=== PATIENT | female | born 1965 | race Caucasian/White ===

== ENCOUNTER → 2017-12-04 | Outpatient (CLI) | payer BC ==
[~2017-12-04] MED LIST: ISOVUE-370 76% 100ML VIAL (Q9967) As Ordered
== END ==
LOC: M RAD 08:48
DX: J38.1 Polyp of vocal cord and larynx (principal)

== ENCOUNTER 2017-12-12 07:10 | Day surgery (SDC) | payer BC ==
[2017-12-12] MEDS: LR 1,000 ML IV (07:41)
[2017-12-12] MEDS ORDERED: SUCCINYLCHOLINE 100 MG/5 ML SYRINGE (J0330) As Ordered (08:05)
[2017-12-12] MEDS ORDERED: LIDOCAINE 2% INJ 100 MG/5 ML SDV (FOR ANES.) As Ordered (08:05)
[2017-12-12] MEDS ORDERED: fentaNYL 100 MCG/2 ML INJECTION (J3010) As Ordered (08:05)
[2017-12-12] MEDS ORDERED: MIDAZOLAM INJ 2 MG/2 ML VIAL (J2250) As Ordered (08:05)
[2017-12-12] MEDS ORDERED: PROPOFOL 200 MG/20 ML VIAL As Ordered (08:05)
[2017-12-12] MEDS: LIDOCAINE W/EPINEPHRINE 1% 20ML VIAL As Ordered (08:36)
[2017-12-12] MEDS ORDERED: ePHEDrine SULFATE 25 MG/5 ML(5MG/ML) SYRINGE As Ordered (09:08)
[2017-12-12] MEDS: dexameTHASONE 4 MG/ML 1ML VIAL (J1100) IV (09:15)
[2017-12-12] MEDS ORDERED: ONDANSETRON 4MG/2ML VIAL (J2405) As Ordered (09:24)
[2017-12-12] MEDS ORDERED: METOCLOPRAMIDE INJ 10MG/2ML VIAL (J2765) As Ordered (09:24)
[2017-12-12] MEDS ORDERED: KETOROLAC 60 MG/2 ML VIAL (J1885) As Ordered (09:24)
[2017-12-12] MEDS: OXYMETAZOLINE NASAL SPRAY (AFRIN) As Ordered (09:29)
[2017-12-12] MEDS: METHYLENE BLUE 0.5% (5MG/ML) 10 ML AMP (PROVAYBLUE)(Q9968 PER 1MG) As Ordered (09:29)
[2017-12-12] MEDS ORDERED: LR 1,000 ML IV (10:45)
[2017-12-12] MEDS: PERCOCET 5MG/325MG TAB PO (10:45)
[2017-12-12] MEDS ORDERED: fentaNYL 100 MCG/2 ML INJECTION (J3010) IV (10:45)
[2017-12-12] MEDS ORDERED: ONDANSETRON 4MG/2ML VIAL (J2405) IV (10:45)
[2017-12-12] MEDS ORDERED: HYDROmorphone HCL 1 MG/ML SYRINGE (J1170) IV (10:45)
== END 2017-12-12 11:56 | disposition home or self-care (01) ==
LOC: M SDC 07:10
DX: R49.0 Dysphonia (principal); J38.1 Polyp of vocal cord and larynx; K21.9 Gastro-esophageal reflux disease without esophagitis; J45.909 Unspecified asthma, uncomplicated; E55.9 Vitamin D deficiency, unspecified; Z79.899 Other long term (current) drug therapy; Z78.0 Asymptomatic menopausal state; Z72.0 Tobacco use
CPT/HCPCS: 31535

== ENCOUNTER 2018-06-10 07:59 | Day surgery (SDC) | payer BC ==
[2018-06-10] MEDS: NS 1,000 ML IV (08:00)
[2018-06-10] MEDS ORDERED: PROPOFOL 200 MG/20 ML VIAL As Ordered ×2 (08:57)
[2018-06-10] MEDS ORDERED: LIDOCAINE 2% INJ 100 MG/5 ML SDV (FOR ANES.) As Ordered (08:57)
== END 2018-06-10 10:09 | disposition home or self-care (01) ==
LOC: M OPP 07:59
DX: Z12.11 Encounter for screening for malignant neoplasm of colon (principal); Z80.0 Family history of malignant neoplasm of digestive organs; K64.0 First degree hemorrhoids; K57.30 Diverticulosis of large intestine without perforation or abscess without bleeding; K21.9 Gastro-esophageal reflux disease without esophagitis; R12 Heartburn; Z78.0 Asymptomatic menopausal state; R06.83 Snoring; Z87.891 Personal history of nicotine dependence; Z79.899 Other long term (current) drug therapy
CPT/HCPCS: G0105

== ENCOUNTER → 2019-09-19 | Outpatient (REF) | payer BC ==
[~2019-09-19] MED LIST changes: +ESOM1CAP5 PO; -ISOVUE-370 76% 100ML VIAL (Q9967) As Ordered; +MULT1TAB10 PO; +NEXI1CAP4 PO; +VITA100067 PO
== END ==
LOC: M LAB REF 10:18
PROVIDERS: ATTEND Physician Assistant Medical
DX: J02.9 Acute pharyngitis, unspecified (principal)

== ENCOUNTER → 2019-11-21 | Outpatient (CLI) | payer BC ==
--- NOTE | 2019-11-22 07:59 | REP ---
LEFT SHOULDER, THREE VIEWS: Three views of the left shoulder are performed. There appears to be a nondisplaced fracture of the greater tuberosity of the proximal left humerus. I see no other evidence of acute fracture or dislocation. IMPRESSION: Nondisplaced fracture greater tuberosity of left humerus. Electronically Signed by Michael Mcgregor MD 11/22/2019 01:21 P
== END ==
LOC: M ADAMS 17:10
PROVIDERS: ATTEND Physician Assistant
DX: M25.512 Pain in left shoulder (principal)

== ENCOUNTER → 2022-11-15 | Outpatient (CLI) | payer BC | LOC: M WUC 10:09 | PROVIDERS: ATTEND Physician Assistant Medical | DX: M25.562 Pain in left knee (principal) ==

== ENCOUNTER → 2023-02-21 | Outpatient (CLI) | payer BC, OTHER, SELFPAY | LOC: M WHC 08:25 | PROVIDERS: ATTEND Internal Medicine | DX: Z12.31 Encounter for screening mammogram for malignant neoplasm of breast (principal); R92.8 Other abnormal and inconclusive findings on diagnostic imaging of breast ==

== ENCOUNTER → 2023-03-12 | Outpatient (CLI) | payer BC | LOC: M WHC 08:24 | PROVIDERS: ATTEND Internal Medicine | DX: R92.2 Inconclusive mammogram (principal) | CPT/HCPCS: 77066; G0279 ==

== ENCOUNTER → 2024-11-19 | Outpatient (CLI) | payer BC ==
[~2024-11-19] MED LIST changes: +ESOM1CAP20 PO; -ESOM1CAP5 PO
== END ==
LOC: M WHC 11:23
PROVIDERS: ATTEND Nurse Practitioner Adult Health
DX: Z12.31 Encounter for screening mammogram for malignant neoplasm of breast (principal)

== ENCOUNTER 2025-02-02 11:47 | Day surgery (SDC) | payer BC ==
[~2025-02-02] VITALS: Ht 170.2 cm; Wt 70.8 kg
[~2025-02-02 11:47] MED LIST changes: +ESOM40CA35 PO; +MULT-90 PO; +VITA100093 PO
[2025-02-02] MEDS ORDERED: propofoL 200 MG/20 ML VIAL As Ordered ONE (12:28)
[2025-02-02] MEDS ORDERED: LIDOCAINE 2% 100MG/5ML SDV (FOR ANES.) As Ordered ONE (12:28)
[2025-02-02 13:20] VITALS: TEMP 97.4
[2025-02-02 13:39] VITALS: BP 121/62; O2SAT 97
== END 2025-02-02 13:47 | disposition home or self-care (01) ==
LOC: M OPP 11:47
PROVIDERS: ATTEND Internal Medicine Gastroenterology
DX: Z12.11 Encounter for screening for malignant neoplasm of colon (principal); D12.0 Benign neoplasm of cecum; D12.5 Benign neoplasm of sigmoid colon; K57.30 Diverticulosis of large intestine without perforation or abscess without bleeding; K21.00 Gastro-esophageal reflux disease with esophagitis, without bleeding; K44.9 Diaphragmatic hernia without obstruction or gangrene; K64.0 First degree hemorrhoids; Z80.0 Family history of malignant neoplasm of digestive organs; Z79.899 Other long term (current) drug therapy; F17.210 Nicotine dependence, cigarettes, uncomplicated